=== PATIENT | female | born 1985 | race Caucasian/White ===

== ENCOUNTER 2016-09-15 16:30 | Emergency (ER) | payer OTHER ==
[~2016-09-15] VITALS: Ht 170.2 cm; Wt 108.9 kg
[2016-09-15 17:22] VITALS: BP 143/90
--- NOTE | 2016-09-15 19:27 | NUR ---
PATIENT TO ER BED 5
--- NOTE | 2016-09-15 19:30 | NUR ---
PATIENT PRESENTS TO ED WITH C/O BACK AND SHOULDER PAIN . PT DENIES N/V/D; SKIN IS PINK/WARM/DRY; AAOX4 WITH EVEN AND STEADY GAIT; LUNGS CLEAR BL; HR EVEN AND REGULAR; PT DENIES ANY FEVER, CP, SOB, OR COUGH AT THIS TIME; PATIENT STATES PAIN OF 5/10 AT THIS TIME; VSS; PATIENT POSITIONED FOR COMFORT; HOB ELEVATED; BEDRAILS UP X2; BED DOWN. ER MD MADE AWARE OF PT STATUS.
--- NOTE | 2016-09-15 20:31 | NUR ---
Patient discharged with v/s stable. Written and verbal after care instructions given and explained. Patient alert, oriented and verbalized understanding of instructions. Ambulatory with steady gait. All questions addressed prior to discharge. ID band removed. Patient advised to follow up with PMD. Rx of CYCLOBENZAPRINE HYDROCLHORIDE AND MEDROL DOSEPAK given. Patient educated on indication of medication including possible reaction and side effects. Opportunity to ask questions provided and answered.
[2016-09-15 20:33] VITALS: BP 134/85
== END 2016-09-15 20:33 | disposition home or self-care (01) ==
LOC: MED 16:30
DX: S39.012A Strain of muscle, fascia and tendon of lower back, initial encounter (principal); S46.912A Strain of unspecified muscle, fascia and tendon at shoulder and upper arm level, left arm, initial encounter; Z88.6 Allergy status to analgesic agent; F17.210 Nicotine dependence, cigarettes, uncomplicated; Z71.6 Tobacco abuse counseling; X50.0XXA Overexertion from strenuous movement or load, initial encounter; Y93.89 Activity, other specified; Y92.89 Other specified places as the place of occurrence of the external cause; Y99.8 Other external cause status
CPT/HCPCS: 72100; 73030; 81025; 99284

== ENCOUNTER 2019-01-30 15:31 | Emergency (ER) | payer OTHER ==
[~2019-01-30] VITALS: Ht 170.2 cm; Wt 113.4 kg
[2019-01-30 15:55] VITALS: BP 134/87
--- NOTE | 2019-01-30 16:03 | NUR ---
PT AMBULATED TO BED 04.
--- NOTE | 2019-01-30 16:03 | NUR ---
PT TAKEN TO XRAY VIA WHEELCHAIR.
--- NOTE | 2019-01-30 16:04 | NUR ---
PT TAKEN TO X RAY.
[2019-01-30] MEDS: HYDROcodone/APAP 5/325 MG 1 TAB TAB PO ONE (16:48)
[2019-01-30] MEDS: LIDOCAINE MPF 1% 10 MG/ML VIAL INJ ONE (16:49)
--- NOTE | 2019-01-30 16:50 | NUR ---
PT WAS ADMINISTERED WITH NORCO FOR PAIN.
[2019-01-30 18:02] VITALS: BP 124/75
== END 2019-01-30 18:02 | disposition home or self-care (01) ==
LOC: MED 15:31
DX: S62.324A Displaced fracture of shaft of fourth metacarpal bone, right hand, initial encounter for closed fracture (principal); Z88.6 Allergy status to analgesic agent; Z88.8 Allergy status to other drugs, medicaments and biological substances; Z98.890 Other specified postprocedural states; W20.8XXA Other cause of strike by thrown, projected or falling object, initial encounter; Y93.89 Activity, other specified; Y92.89 Other specified places as the place of occurrence of the external cause; Y99.8 Other external cause status
CPT/HCPCS: 26605; 73120; 73130; 99284; J2001; Q0092

== ENCOUNTER 2019-04-25 09:55 | Emergency (ER) | payer OTHER ==
[~2019-04-25] VITALS: Ht 170.2 cm; Wt 111.1 kg
[2019-04-25 09:58] VITALS: BP 161/95
--- NOTE | 2019-04-25 10:07 | NUR ---
PT WHEELED TO BED 2 VIA WHEELCHAIR.
--- NOTE | 2019-04-25 10:11 | NUR ---
PT TO ER BED 2
--- NOTE | 2019-04-25 10:12 | NUR ---
33Y/F PRESENTS TO ED FOR L ANKLE PAIN 08/28, SHARP PAIN, RADIATES ALL THROUGHOUT ANKLE. EDEMA NOTED. PEDAL PULSE 2+. PT REPORTS SHE TWISTED L ANKLE WHILE GETTING OFF HER BED ON SUNDAY AND AGAIN TODAY WHILE GOING DOWN THE STAIRS TODAY. PT WAS USING AN ANKLE BRACE BUT IT WAS CUTTING INTO HER SKIN, IRRIATION FROM BRACE TO ANTERIOR ANKLE. PT TAKING TYLENOL WITH NO RELIEF. ALLERGIES- ASA, IBUPROFEN RX- TYLENOL, DEPO PMH- ANXIETY
--- NOTE | 2019-04-25 10:14 | NUR ---
XR AT BEDSIDE.
--- NOTE | 2019-04-25 12:25 | NUR ---
DR. SO AT BEDSIDE.
[2019-04-25 12:32] VITALS: BP 159/84
== END 2019-04-25 12:32 | disposition home or self-care (01) ==
LOC: MED 09:55
DX: S93.412A Sprain of calcaneofibular ligament of left ankle, initial encounter (principal); F41.9 Anxiety disorder, unspecified; Z88.6 Allergy status to analgesic agent; X50.1XXA Overexertion from prolonged static or awkward postures, initial encounter; Y93.89 Activity, other specified; Y92.89 Other specified places as the place of occurrence of the external cause; Y99.8 Other external cause status
CPT/HCPCS: 73610; 99283

== ENCOUNTER 2019-08-11 12:32 | Emergency (ER) | payer OTHER ==
[~2019-08-11] VITALS: Ht 170.2 cm; Wt 115.7 kg
[2019-08-11 12:52] VITALS: BP 124/85
--- NOTE | 2019-08-11 14:18 | NUR ---
Ana Laura barrera in [facility] - 08/11/19 at 1421 by MMTHEM LUCILLE Hatch is evaluating the patient at bedside.
--- NOTE | 2019-08-11 14:24 | NUR ---
Patient returned from x-ray, transferred to bed 9 via wheelchair. RN evaluating patient at bedside.
--- NOTE | 2019-08-11 14:32 | NUR ---
LUCILLE COATES AT BEDSIDE
--- NOTE | 2019-08-11 14:36 | NUR ---
PT C/O COUGH WITH PHLEM X 3 DAYS. PT STATES SHE WAS RECENTLY TESTED FOR COVID, SUNDAY RESULT WAS NEGATIVE. BREATH SOUNDS CLEAR. RR EVEN AND UNLABORED. PT REPORTS SHE HAS BEEN TAKING COUGH DROPS. PT ALSO ADDS THAT SHE TRIPPED TODAY WHILE GOING DOWNSTAIRS AND INJURED L ANKLE. +ROM WITH PAIN. +SWELLING. PALPABLE PEDAL PULSE. PAIN 10/10 TO TOUCH. PT DENIES AB PAIN, N/V/D, OR FEVERS. DENIES PMH
--- NOTE | 2019-08-11 14:37 | NUR ---
pt also adds cp due to increased coughing
[2019-08-11 15:19] VITALS: BP 130/76
--- NOTE | 2019-08-11 15:19 | NUR ---
Patient discharged with v/s stable. Written and verbal after care instructions given and explained regarding bronchitis. Patient alert, oriented and verbalized understanding of instructions. Ambulatory with steady gait. All questions addressed prior to discharge. ID band removed. Patient advised to follow up with PMD. Rx of promethazine, azithromyocin, and tylenol given. Patient educated on indication of medication including possible reaction and side effects. Opportunity to ask questions provided and answered. pt instructed that she can apply rice-rest, ice,elevate, and compression to l ankle. pt left without duane wrap being applied
== END 2019-08-11 15:19 | disposition home or self-care (01) ==
LOC: MED 12:32
DX: S93.402A Sprain of unspecified ligament of left ankle, initial encounter (principal); J20.9 Acute bronchitis, unspecified; Z88.6 Allergy status to analgesic agent; W18.39XA Other fall on same level, initial encounter; Y93.89 Activity, other specified; Y92.89 Other specified places as the place of occurrence of the external cause; Y99.8 Other external cause status
CPT/HCPCS: 73610; 99283

== ENCOUNTER 2021-11-09 16:44 | Emergency (ER) | payer OTHER ==
[~2021-11-09] VITALS: Ht 170.2 cm; Wt 127.0 kg
[~2021-11-09 16:44] MED LIST: ARIP5TAB8 PO; ATA10 PO; BUPR-10 PO; HYDR-5122 PO
[2021-11-09 17:10] VITALS: BP 168/105
--- NOTE | 2021-11-09 17:20 | NUR ---
PT W/C ASSISTED TO BED 1.
[2021-11-09] MEDS ORDERED: NACL 0.9% 1,000 ML IV ONE (17:35)
[2021-11-09] MEDS ORDERED: ONDANSETRON 4 MG/2 ML VIAL IVP ONE (17:35)
[2021-11-09] MEDS ORDERED: MORPHINE SULFATE 4 MG/ML SYR IVP ONE ×2 (17:35→19:15)
--- NOTE | 2021-11-09 17:46 | NUR ---
36/F WHEELCHAIRED INTO ED C/O VOMITING AND WEAKNESS ACCOMPANIED BY BARNES ONSET 5 DAYS. STATES HAVING SYNCOPE AND FALL TODAY. VSS, ON MONITOR. EKG DONE PMH: ANXIETY DISORDER
[2021-11-09 17:53] LABS: BASOPHILS % (AUTO) 0.3 % (0.0-2.0); HEMOGLOBIN 15.3 g/dL (12.0-16.0); LYMPHOCYTES # (AUTO) 2.1 K/uL (2.5-16.5); LYMPHOCYTES % (AUTO) 19.1 % (20.5-51.1); MEAN CORPUSCULAR HEMOGLOBIN 29 pg (27-31); MEAN CORPUSCULAR HGB CONC 34 g/dL (33-37); MEAN CORPUSCULAR VOLUME 84.4 fL (80-94); MONOCYTES # (AUTO) 0.7 K/uL (0.8-1.0); MONOCYTES % (AUTO) 5.9 % (1.7-9.3); NEUTROPHILS # (AUTO) 8.2 K/uL (1.8-7.7); NEUTROPHILS % (AUTO) 74.7 % (42.2-75.2); PLATELET COUNT (AUTO) 320 K/uL (140-450); RED BLOOD CELL COUNT(AUTO) 5.33 MIL/uL (4.20-5.40); RED CELL DISTRIBUTION WIDTH 12.8 % (11.6-13.7)
[2021-11-09 18:29] LABS: ALBUMIN 4.1 g/dL (3.4-5.0); ANION GAP 19.6 (8-16); CARBON DIOXIDE 21.7 mmol/L (21-32); CREATININE 0.8 mg/dL (0.6-1.3); POTASSIUM 3.3 mmol/L (3.5-5.1); TOTAL BILIRUBIN 0.8 mg/dL (0.0-1.0)
--- NOTE | 2021-11-09 19:01 | NUR ---
PT AMBULATED TO RESTROOM FOR URINE COLLECTION. PT ALSO C/O PAIN UNCHANGED. ERMD NOTIFIED
[2021-11-09] MEDS ORDERED: ONDA8TAB87 PO (19:38)
[2021-11-09] MEDS ORDERED: ACET-8386 PO (19:38)
[2021-11-09 20:56] VITALS: BP 129/84
== END 2021-11-09 20:58 | disposition home or self-care (01) ==
LOC: MED 16:44
DX: R55 Syncope and collapse (principal); R10.13 Epigastric pain; Z79.82 Long term (current) use of aspirin; Z79.1 Long term (current) use of non-steroidal anti-inflammatories (NSAID); Z88.1 Allergy status to other antibiotic agents; Z88.5 Allergy status to narcotic agent; Z88.8 Allergy status to other drugs, medicaments and biological substances; Z98.890 Other specified postprocedural states
CPT/HCPCS: 36415; 80053; 81002; 81025; 83690; 85025; 93005; 96361; 96374; 96375; 96376; 99284; J2270; J2405; J7030

== ENCOUNTER 2021-12-14 08:25 | Emergency (ER) | payer OTHER ==
[~2021-12-14] VITALS: Ht 170.2 cm; Wt 134.0 kg
[~2021-12-14 08:25] MED LIST changes: +ACET-8386 PO; +ONDA8TAB87 PO
[2021-12-14 08:45] VITALS: BP 121/79
--- NOTE | 2021-12-14 08:50 | NUR ---
PT AMBULATED TO ER BED 9
[2021-12-14] MEDS ORDERED: NACL 0.9% 1,000 ML IV SCH (09:10)
[2021-12-14 09:47] LABS: BASOPHILS # (AUTO) 0.1 K/uL (0.00-0.22); BASOPHILS % (AUTO) 0.4 % (0.0-2.0); HEMATOCRIT 42.2 % (36-48); HEMOGLOBIN 14.2 g/dL (12.0-16.0); LYMPHOCYTES # (AUTO) 3.1 K/uL (2.5-16.5); LYMPHOCYTES % (AUTO) 22.9 % (20.5-51.1); MEAN CORPUSCULAR HEMOGLOBIN 29 pg (27-31); MEAN CORPUSCULAR HGB CONC 34 g/dL (33-37); MEAN CORPUSCULAR VOLUME 85.8 fL (80-94); MONOCYTES # (AUTO) 0.9 K/uL (0.8-1.0); MONOCYTES % (AUTO) 6.9 % (1.7-9.3); NEUTROPHILS # (AUTO) 9.4 K/uL (1.8-7.7); NEUTROPHILS % (AUTO) 69.8 % (42.2-75.2); PLATELET COUNT (AUTO) 316 K/uL (140-450); RED BLOOD CELL COUNT(AUTO) 4.92 MIL/uL (4.20-5.40); RED CELL DISTRIBUTION WIDTH 12.9 % (11.6-13.7); WHITE BLOOD COUNT (AUTO) 13.5 K/uL (4.8-10.8)
[2021-12-14 10:12] LABS: ALBUMIN 3.4 g/dL (3.4-5.0); ANION GAP 12.7 (8-16); CARBON DIOXIDE 23.2 mmol/L (21-32); CREATININE 0.8 mg/dL (0.6-1.3); POTASSIUM 3.9 mmol/L (3.5-5.1); TOTAL BILIRUBIN 0.1 mg/dL (0.0-1.0)
[2021-12-14] MEDS ORDERED: PIPERACILLIN/TAZOBACTAM 3.375 GM in DEXTROSE 5% 50 ML IV ONE (10:45)
--- NOTE | 2021-12-14 11:00 | NUR ---
36/F BIB TO ED WITH C/O MID ABDOMINAL PAIN X3 DAYS. PATIENT REPORTS HX OF UMBILICAL HERNIA X8 YEARS AND STATES SHE BELIEVES PAIN IS RELATED. PATIENT STATES PAIN BEGAN 3 DAYS AGO AFTER WEIGHT LIFTING AT THE GYM. REPORTS ONE DAY OF N/V, DENIES DIARRHEA, CONSTIPATION. STATES SHE TOOK TYLENOL WITH NO RELIEF. DENIES SOB, CP.
[2021-12-14] MEDS ORDERED: MORPHINE SULFATE 4 MG/ML SYR IM ONE (11:10)
--- NOTE | 2021-12-14 11:10 | NUR ---
PATIENT PULLED IV OUT. NEW IV ESTABLISHED IN LEFT FOREARM FOR ABX TX.
[2021-12-14] MEDS ORDERED: PIPERACILLIN/TAZOBACTAM 3.375 GM VIAL IV ONE (11:20)
[2021-12-14 11:38] VITALS: BP 109/79
[2021-12-14 12:59] LABS: APPEARANCE,URINE CLEAR (CLEAR); BILIRUBIN,URINE NEGATIVE (NEGATIVE); BLOOD, URINE NEGATIVE (NEGATIVE); COLOR,URINE YELLOW (YELLOW); LEUKOCYTE ESTERASE ,URINE NEGATIVE (NEGATIVE); NITRITE, URINE NEGATIVE (NEGATIVE); UGLUCOSE 2+ (NEGATIVE)
--- NOTE | 2021-12-14 13:00 | NUR ---
PATIENT RESTING IN BED, ALL NEEDS MET AT THIS TIME.
[2021-12-14 13:15] LABS: RBC,URINE 0-5 /HPF (0-5); WBC,URINE 0-5 /HPF (0-5)
[2021-12-14 13:16] LABS: CALCIUM OXALATE CRYSTALS,UR 0-10 /HPF (None Seen)
[2021-12-14 13:18] LABS: BARBITURATE, URINE NEGATIVE ng/ml (NEG <=200); BENZODIAZEPINE, URINE POSITIVE ng/mL (NEG <=200); CANNABINOID, URINE POSITIVE ng/mL (NEG <=50); COCAINE, URINE NEGATIVE ng/mL (NEG <=300); OPIATE, URINE POSITIVE ng/mL (NEG <=2000); PHENCYCLIDINE SCREEN,URINE NEGATIVE ng/mL (NEG <=25)
[2021-12-14] MEDS ORDERED: BEN10 PO (13:56)
[2021-12-14] MEDS ORDERED: ACET-2619 PO (13:56)
--- NOTE | 2021-12-14 14:20 | NUR ---
Patient discharged and left without discharge instructions. IV was discontinued.
== END 2021-12-14 14:20 | disposition home or self-care (01) ==
LOC: MED 08:25
DX: R10.9 Unspecified abdominal pain (principal); E11.65 Type 2 diabetes mellitus with hyperglycemia; F12.90 Cannabis use, unspecified, uncomplicated; F11.90 Opioid use, unspecified, uncomplicated; K44.9 Diaphragmatic hernia without obstruction or gangrene; J45.909 Unspecified asthma, uncomplicated; I10 Essential (primary) hypertension; F41.9 Anxiety disorder, unspecified; Z98.890 Other specified postprocedural states; Z79.899 Other long term (current) drug therapy; Z88.6 Allergy status to analgesic agent; Z88.8 Allergy status to other drugs, medicaments and biological substances; Z88.5 Allergy status to narcotic agent
CPT/HCPCS: 36415; 70450; 71045; 74176; 80053; 80305; 81001; 82550; 82553; 83605; 85025; 87040; 93005; 96361; 96365; 96372; 99285; J2270; J2543; J7030; Q0092; 81025; 87086